=== PATIENT | male | born 1970 ===

== ENCOUNTER 2020-02-09 18:43 | Emergency (ER) | payer OTHER ==
[2020-02-09] MEDS ORDERED: Sodium Chloride 0.9% 10 ML Syringe FLUSH PRN (19:07)
[2020-02-09] MEDS ORDERED: Ketorolac 30 MG/ML SDV IVPUSH ONE (19:07)
[2020-02-09] MEDS ORDERED: Sodium Chloride 0.9% 1,000 ML IV ONE ×2 (19:07→20:54)
--- NOTE | 2020-02-09 19:25 | EDM.PDOC ---
ED HPI GENERAL MEDICAL PROBLEM - General Chief Complaint: Flank Pain Stated Complaint: KIDNEY STONE...PER PT Time Seen by Provider: 02/09/20 19:10 Source of Information: Reports: Patient, RN, RN Notes Reviewed History Limitations: Reports: No Limitations - History of Present Illness INITIAL COMMENTS - FREE TEXT/NARRATIVE: Patient presents to ER with complaint of left flank pain wrapping around to the left back, left lower abdomen. Patient states the pain began yesterday and has progressively gotten worse. Admits to some nausea and vomiting. Rates the pain an 8-9/10. Patient states he has had some fever and chills are minimally since yesterday. Patient states he used some oxycodone he found at home to help with the pain. Patient admits to kidney stones in the past. Onset: Gradual Onset Date: 02/08/20 Duration: Constant, Getting Worse Location: Reports: Abdomen, Back Quality: Reports: Sharp, Stabbing Severity: Moderate Improves with: Reports: None Worsens with: Reports: None Associated Symptoms: Reports: Fever/Chills, Nausea/Vomiting Left Flank Pain Score (Numeric/FACES): 7 - Related Data Allergies Allergy/AdvReac Type Severity Reaction Status Date / Time No Known Allergies Allergy Verified 02/09/20 18:49 Home Meds: Home Meds . [No Known Home Meds] 02/09/20 [History] Past Medical History Genitourinary History: Reports: Renal Calculus - Past Surgical History GI Surgical History: Reports: Hernia Repair/Other Social & Family History - Tobacco Use Smoking Status *Q: Never Smoker Second Hand Smoke Exposure: No - Recreational Drug Use Recreational Drug Use: No ED ROS GENERAL - Review of Systems Review Of Systems: Comprehensive ROS is negative, except as noted in HPI. ED EXAM, RENAL/ - Physical Exam Exam: See Below Exam Limited By: No Limitations General Appearance: Alert, WD/WN, Mild Distress Eye Exam: Bilateral Eye: EOMI, Normal Inspection Ears: Normal External Exam, Hearing Grossly Normal Nose: Normal Inspection Throat/Mouth: Normal Inspection Head: Atraumatic, Normocephalic Neck: Normal Inspection Respiratory/Chest: No Respiratory Distress, Lungs Clear, Normal Breath Sounds, No Accessory Muscle Use, Chest Non-Tender Cardiovascular: Normal Peripheral Pulses, Regular Rate, Rhythm, No Edema, No Gallop, No JVD, No Murmur, No Rub GI/Abdominal: Normal Bowel Sounds, Soft, No Organomegaly, No Distention, No Abnormal Bruit, No Mass, Tender (LLQ) (Male) Exam: Deferred Rectal (Males) Exam: Deferred Back Exam: Normal Inspection, Full Range of Motion, CVA Tenderness (L) Extremities: Normal Inspection, Normal Range of Motion, Non-Tender, Normal Capillary Refill, No Pedal Edema Neurological: Alert, Oriented, CN II-XII Intact, Normal Cognition, Normal Gait, Normal Reflexes, No Motor/Sensory Deficits Psychiatric: Normal Affect, Normal Mood Skin Exam: Warm, Dry, Intact, Normal Color, No Rash Lymphatic: No Adenopathy Course - Vital Signs Last Recorded V/S: Last Vital Signs Temp 96.7 F L 02/09/20 18:46 Pulse 83 02/09/20 20:45 Resp 18 02/09/20 18:46 BP 154/80 H 02/09/20 20:45 Pulse Ox 96 02/09/20 20:45 - Orders/Labs/Meds Orders: Active Orders 24 hr Category Date Time Status Peripheral IV Care [RC] . DIRECTED Care 02/09/20 19:07 Active Sodium Chloride 0.9% [Normal Saline] 1,000 ml Med 02/09/20 20:54 Active IV .BOLUS Sodium Chloride 0.9% [Saline Flush] Med 02/09/20 19:07 Active 10 ml FLUSH ASDIRECTED PRN Peripheral IV Insertion Adult [OM.PC] Stat Oth 02/09/20 19:07 Ordered Medication Orders Sodium Chloride (Normal Saline) 1,000 mls @ 150 mls/hr IV .BOLUS ONE Stop: 02/10/20 03:33 Sodium Chloride (Saline Flush) 10 ml FLUSH ASDIRECTED PRN PRN Reason: Keep Vein Open Last Admin: 02/09/20 19:21 Dose: 10 ml Labs: Laboratory Tests 02/09/20 02/09/20 02/09/20 Range/Units 18:55 19:25 19:25 WBC 17.6 H (5.0-10.0) 10^3/uL RBC 4.92 (4.6-6.2) 10^6/uL Hgb 16.1 (14.0-18.0) g/dL Hct 46.1 (40.0-54.0) % MCV 93.7 (80-100) fL MCH 32.7 (27.0-34.0) pg MCHC 34.9 (33.0-35.0) g/dL Plt Count 228 (150-450) 10^3/uL Neut % (Auto) 90.7 H (42.2-75.2) % Lymph % (Auto) 3.6 L (20.5-50.1) % [place] % (Auto) 5.4 (2-8) % Eos % (Auto) 0.1 L (1.0-3.0) % Baso % (Auto) 0.2 (0.0-1.0) % Sodium 134 L (136-145) mmol/L Potassium 4.0 (3.5-5.1) mmol/L Chloride 100 (98-107) mmol/L Carbon Dioxide 27 (21-32) mmol/L Anion Gap 11.0 (7-13) mEq/L BUN 20 H (7-18) mg/dL Creatinine 1.38 H (0.70-1.30) mg/dL Est Cr Clr Drug Dosing 67.59 mL/min Estimated GFR (MDRD) 55 BUN/Creatinine Ratio 14.5 (No establ ref range) Glucose 176 H (74-99) mg/dL Calcium 9.0 (8.5-10.1) mg/dL Total Bilirubin 1.1 H (0.2-1.0) mg/dL AST 26 (15-37) U/L ALT 63 (16-63) U/L Alkaline Phosphatase 88 (46-116) U/L Total Protein 8.1 (6.4-8.2) g/dL Albumin 4.5 (3.4-5.0) g/dL Globulin 3.6 Albumin/Globulin Ratio 1.2 Urine Color Dark yellow (YELLOW) Urine Appearance Slightly cloudy (CLEAR) Urine pH 6.0 (5.0-9.0) Ur Specific [place] >= 1.030 (1.005-1.030) Urine Protein Negative (NEGATIVE) Urine Glucose (UA) Negative (NEGATIVE) Urine Ketones Negative (NEGATIVE) Urine Occult Blood Moderate H (NEGATIVE) Urine Nitrite Negative (NEGATIVE) Urine Bilirubin Negative (NEGATIVE) Urine Urobilinogen 0.2 (0.2-1.0) mg/dL Ur Leukocyte Esterase Negative (NEGATIVE) Urine RBC 30-40 H /HPF Urine WBC 10-20 H (0-5/HPF) /HPF Ur Epithelial Cells Moderate H (NOT SEEN) /HPF Urine Bacteria Many H (0-FEW/HPF) /HPF Urine Yeast Many H (NOT SEEN) /HPF Meds: Medications Generic Name Dose Route Start Last Admin Trade Name Freq PRN Reason Stop Dose Admin Sodium Chloride 1,000 mls @ 150 mls/hr 02/09/20 20:54 Normal Saline IV 02/10/20 03:33 .BOLUS ONE Sodium Chloride 10 ml 02/09/20 19:07 02/09/20 19:21 Saline Flush FLUSH 10 ml ASDIRECTED PRN Administration Keep Vein Open Discontinued Medications Generic Name Dose Route Start Last Admin Trade Name Freq PRN Reason Stop Dose Admin Sodium Chloride 1,000 mls @ 999 mls/hr 02/09/20 19:07 02/09/20 19:37 Normal Saline IV 02/09/20 20:07 999 mls/hr .BOLUS ONE Administration Ceftriaxone Sodium 1 gm/ 50 mls @ 100 mls/hr 02/09/20 20:40 02/09/20 20:51 Sodium Chloride IV 02/09/20 21:09 100 mls/hr ONETIME ONE Administration Ketorolac Tromethamine 30 mg 02/09/20 19:07 02/09/20 19:37 Toradol IVPUSH 02/09/20 19:08 30 mg ONETIME ONE Administration - Radiology Interpretation Free Text/Narrative:: CT wo contrast: FINDINGS: Lungs: Atelectatic changes noted within the lung bases. Liver: There is a diffuse decrease in hepatic parenchymal density, consistent with mild fatty infiltration. Gallbladder and bile ducts: The gallbladder is normal. Pancreas: The pancreas is normal. Spleen: The spleen is normal. Adrenals: The adrenal glands are normal. Kidneys and ureters: 6 mm calcification is present at the left ureterovesicular junction with obstructive uropathy on the left. Mild left perinephric fat stranding is present. 2 mm calcification is present within the left kidney. The right kidney is normal. Stomach and bowel: Unremarkable. No obstruction. No mucosal thickening. Appendix: A normal appendix is identified. Intraperitoneal space: Normal. No significant fluid collection. Vasculature: The aorta is normal. Lymph nodes: Unremarkable. No enlarged lymph nodes. Bladder: The bladder is normal. Reproductive: The prostate demonstrates mild nonspecific enlargement. The seminal vesicles are normal. Bones/joints: The lumbar spine demonstrates mild degenerative changes at multiple levels. Soft tissues: Right fat filled inguinal hernia. IMPRESSION: 1. 6 mm calcification is present at the left ureterovesicular junction with obstructive uropathy on the left. 2. Mild left perinephric fat stranding is present. Findings may be consistent with early pyelonephritis. 3. Right fat filled inguinal hernia. Thank you for allowing us to participate in the care of your patient. Dictated and Authenticated by: Jefferson Nation DO 02/09/2020 8:35 PM Central Time ([place] & [place]) See rad report - Re-Assessments/Exams Free Text/Narrative Re-Assessment/Exam: 02/09/20 21:10 Pt case discussed with Dr. Will, Urology at [facility], who states he would like to have the patient transferred to [facility] for admission. He states he will complete a procedure right away in the morning, and if the patient would decline, the procedure would be done tonight. Patient care discussed with Dr. Whitney who agreed to accept the patient for transfer to [facility]. Patient refuses ambulance transfer to [facility] in [place]. He states he will get a ride or will drive himself to [place]. Patient has signed appropriate paperwork for refusal of ambulance transfer. It was explained to the patient that his health could decline in the meantime, and his pain may increase. Patient states understanding. Departure - Departure Time of Disposition: 21:20 Disposition: DC/Tfer to Acute Hospital 02 Condition: Fair Clinical Impression: Kidney stone on left side, Hydronephrosis with renal calculous obstruction Leukocytosis Qualifiers: Leukocytosis type: bandemia Qualified Code(s): D72.825 - Bandemia - Discharge Information *PRESCRIPTION DRUG MONITORING PROGRAM REVIEWED*: No *COPY OF PRESCRIPTION DRUG MONITORING REPORT IN PATIENT JANY: No Instructions: Pyelonephritis, Adult, [id number], Kidney Stones, [id number] , Flank Pain, Adult, [id number] Referrals: PCP,None [Primary Care Provider] - Forms: ED Department Discharge Additional Instructions: Go directly to [facility] at the ER/Admitting entrance Nothing to eat or drink after midnight Sepsis Event Note - Evaluation Sepsis Screening Result: No Definite Risk - Focused Exam Vital Signs: Vital Signs Temp Pulse Resp BP Pulse Ox 02/09/20 20:45 83 154/80 H 96 02/09/20 18:46 96.7 F L 51 L 18 170/100 H 99 Date Exam was Performed: 02/09/20 Time Exam was Performed: 21:20 - My Orders Last 24 Hours: My Active Orders 02/09/20 19:07 Peripheral IV Care [RC] . DIRECTED Sodium Chloride 0.9% [Saline Flush] 10 ml FLUSH ASDIRECTED PRN Peripheral IV Insertion Adult [OM.PC] Stat 02/09/20 20:54 Sodium Chloride 0.9% [Normal Saline] 1,000 ml IV .BOLUS - Assessment/Plan Last 24 Hours: My Active Orders 02/09/20 19:07 Peripheral IV Care [RC] . DIRECTED Sodium Chloride 0.9% [Saline Flush] 10 ml FLUSH ASDIRECTED PRN Peripheral IV Insertion Adult [OM.PC] Stat 02/09/20 20:54 Sodium Chloride 0.9% [Normal Saline] 1,000 ml IV .BOLUS
[2020-02-09] MEDS ORDERED: cefTRIAXone 1 GM in Sodium Chloride 0.9% 50 ML IV ONE (20:40)
[2020-02-09 21:23] VITALS: BP 134/92; PULSE 88
== END 2020-02-09 21:29 ==
LOC: DL.ED 18:43
DX: N13.2 Hydronephrosis with renal and ureteral calculous obstruction (principal); D72.825 Bandemia
CPT/HCPCS: 36415; 74176; 80053; 81001; 85025; 96361; 96365; 96375; 99285; J0696; J1885; J7030; J7050